=== PATIENT | female | born 1985 | race African-American/Black ===

== ENCOUNTER 2024-05-19 12:16 | Inpatient (IN) | payer SELFPAY ==
[~2024-05-19] VITALS: Ht 157.5 cm; Wt 68.2 kg
--- NOTE | 2024-05-19 12:28 | ECG ---
[facility] Test Date: 2024-05-19 Test Time: 12:27:17 Pat Name: EDWAR GRIFFIN Department: ER Room: Gender: F Driver Engineer: NORMA : 1985 Requested By: THUAN WESTON Order Number: [id number] Reading MD: Measurements Intervals [place] Rate: 94 P: 48 DC: 115 QRS: 37 QRSD: 66 T: -5 QT: 303 QTc: 379 Interpretive Statements Sinus rhythm Borderline short DC interval Abnormal R-wave progression, early transition Borderline T abnormalities, anterior leads Baseline wander in lead(s) I,II,aVR,aVF Please click the below link to view image of tracing.
[2024-05-19 12:52] LABS: Basophils # (auto) 0 10 ^3/uL (0-0.2); Basophils % (auto) 0.5 % (0.0-2.0); Eosinophils # (auto) 0.1 10 ^3/uL (0-0.8); Eosinophils % (auto) 0.7 % (0.0-7.0); Hematocrit 25.9 % (36.0-46.0); Hemoglobin 8.3 g/dL (12.2-16.2); Lymphocytes # (auto) 1.1 10 ^3/uL (0.4-5.4); Mean Corpuscular Hemoglobin 26.1 pg (28.0-32.0); Mean Corpuscular Hgb Conc. 31.8 g/dL (32.0-36.0); Monocytes % (auto) 13.5 % (0.0-12.0); Neutrophils # (auto) 5.4 10 ^3/uL (1.6-8.6); Neutrophils % (auto) 71.3 % (37.0-80.0); Platelet Count (auto) 617 10^3/uL (140-450); Red Blood Cells 3.16 10^6/uL (4.0-5.20); Red Cell Distribution Width 17.1 % (11.8-14.3); White Blood Cell 7.6 10^3/uL (4.4-10.8)
--- NOTE | 2024-05-19 12:53 | ED.PDOC ---
SOB-HPI HPI Comments GABY: 38-year-old female presents to emergency department for evaluation of nonspecific shortness of breath for one-week. She was recently diagnosed with a UTI and just finished her last dose of antibiotics cephalexin this morning. Patient denies any acute urinary symptoms at this time but she complains of worsening left flank pain. Patient denies any other acute symptoms. Denies any . Denies any bleeding from anywhere. Pain is constant non-radiating. Pain is worse with laying on her left side. Vitals: Temp:98.7 F Heart rate: 82 RR: 18 BP: 118/86 02 sat: 95% on room air PMH:DENIES PSH: DENIES Social history: DENIES tobacco use, ENDORSES ETOH use, DENIES drug use Meds: DENIES Allergies: IBUPROFEN REVIEW OF SYSTEMS: CONSTITUTIONAL: Denies acute: fever, diaphoresis, chills, generalized weakness. HEAD: Denies acute: headache, photophobia Eyes: Denies acute: Double vision, vision loss, eye pain, eye discharge. EARS: Denies acute: tinnitus, hearing loss, ear discharge, ear pain, THROAT: Denies acute: sore throat, swelling, difficulty swallowing , pain with swallowing, change in voice. NECK: Denies acute: neck pain, neck swelling, stiff neck. HEART: Denies acute : palpitations, LUNGS: Denies acute: wheezing, cough, hemoptysis ABDOMEN: Denies acute: abdominal pain, Nausea, Vomiting, diarrhea, melena , hematemesis, hematochezia SKIN: Denies acute: rash, redness, lesions, itchiness. EXTREMITIES: Denies acute: calf pain, numbness, tingling, weakness, denies pain in extremity. Denies acute: Low back pain. Neuro: Denies acute: focal neurological deficit, motor or sensory focal neurological deficit, tremors, seizure like activity, confusion, dizziness, change in mental status, loss of bowel or bladder function, cauda equina like symptoms. : Denies acute: dysuria, hematuria, increase in urinary frequency. PSYCH: Denies acute: hallucination, suicidal ideation, homicidal ideation. FEMALE: Denies acute: abnormal vaginal bleeding, foul odor, unusual discharge. PHYSICAL EXAM: General: no acute distress, awake and alert. Head: normocephalic, atraumatic. Neck: supple, trachea is midline, no swelling. Throat: Normal phonation. Eyes:, no erythema, no purulent discharge, no proptosis, no icterus. Heart: regular rate, regular rhythm, no significant murmur appreciated. Lungs: no apparent respiratory distress, Able to speak in full sentences. No wheezing, no rhonchi, no crackles. No stridors Clear to auscultation bilaterally. Abdomen: non tender to palpation, non distended, soft, no guarding, no rebound, + bowel sounds. Neuro: Awake, Alert, oriented to name, self, situation, follows commands GCS=15. Speech is normal. Skin: no petechia, no purpura, no cyanosis, non-pale, not jaundice. Lower extremities: --no - Pitting edema no deformity, no focal swelling, no calf TTP. Makes eye contact. moves all four extremities. Face: no apparent facial droop. Left CVA tenderness to percussion Ambulating in the ED independently. 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 Was a procedure done?: No Differential Dx Differential Diagnosis: Other (DDx include ACS, unstable angina, anxiety, PE, pneumothroax, neoplasm, cardiac ischemia, COPD, asthma, CHF, pleural effusion, tobacco abuse, pneumonia, hypoxia, hypercapnia, anemia., infection/sepsis., pulmonary edema. Asthma, Cardiac tamponade, infection. Flank Pain;DDX include Nephrolethiasis, obstructive uropathy, kidney cancer, renal infarct, intraabdominal neoplasm, lower lobe pneumonia, retroperitoneal hemorrhage, pancreatitis, aneurysm, dissection, musculoskeletal, rib contusion/trauma, hematoma, PYLONEPHRITIS, muscle strain, spinal disease. IN A FEMALE) X-Ray, Labs, Meds, VS Vital Signs Date Time Temp Pulse Resp B/P (MAP) Pulse Ox O2 Delivery O2 Flow Rate FiO2 05/19/24 18:09 117/49 05/19/24 18:06 86 16 100 Room Air 05/19/24 18:06 86 16 117/49 (71) 100 05/19/24 12:27 94 05/19/24 12:18 99.5 98 18 117/67 (84) 100 Lab Test 05/19/24 20:20 05/19/24 13:57 05/19/24 12:35 Range/Units Blood Gas Specimen Type Arterial Blood Gas Sample Site Left radial Blood Gas Patient Temperature 37.0 Arterial Blood Date Drawn Arterial Blood pH 7.450 7.350-7.450 Arterial Blood Partial Pressure CO2 22.5 L 32.0-45.0 mmHg Arterial Blood Partial Pressure O2 93.9 83.0-108.0 mmHg Arterial Blood HCO3 15.3 L 21.0-28.0 mmol/L Arterial Blood Oxygen Saturation 97.3 94.0-98.0 % Arterial Blood Base Excess -7.3 L -2.0-3.0 mmol/L Arterial Blood Oxyhemoglobin 96.7 94.0-98.0 % Arterial Blood Carboxyhemoglobin 0.3 L 0.5-1.5 % Arterial Blood Methemoglobin 0.3 0.0-1.5 % Jelani Test Yes Blood Gas Total Hemoglobin 9.60 L 12.0-16.0 g/dL Blood Gas Liter Flow 0.00 Blood Gas Modality Room air FiO2 % 21.0 Specimen Drawn By Héctor velasquez Urine Color Yellow Yellow Urine Clarity Clear Clear Urine pH 7.0 5.0-9.0 Urine Specific [place] 1.021 1.001-1.035 Urine Protein 1+ H Negative Urine Ketones Negative Negative Urine Blood Negative Negative /uL Urine Nitrite Negative Negative Urine Bilirubin Negative Negative Urine Urobilinogen 6 Negative mg/dL Urine Leukocyte Esterase 1+ Negative /uL Urine RBC 2 0 - 4 /hpf Urine WBC 5 0 - 5 /hpf Urine Squamous Epithelial Cells Few <5 /hpf Urine Bacteria Few H None Seen /hpf Urine Mucus Few None Seen Urine Glucose Normal Normal mg/dL Urine Opiates Screen Neg NEGATIVE Urine Fentanyl Screen Neg NEGATIVE Urine Barbiturates Screen Neg NEGATIVE Urine Phencyclidine Screen Neg NEGATIVE Urine Amphetamines Screen Neg NEGATIVE Urine Benzodiazepines Screen Neg NEGATIVE Urine Cocaine Screen Neg NEGATIVE Urine Cannabinoids Screen Pos NEGATIVE White Blood Count 7.6 4.4-10.8 10^3/uL Red Blood Count 3.16 L 4.0-5.20 10^6/uL Hemoglobin 8.3 L 12.2-16.2 g/dL Hematocrit 25.9 L 36.0-46.0 % Mean Corpuscular Volume 82.0 80.0-100.0 fL Mean Corpuscular Hemoglobin 26.1 L 28.0-32.0 pg Mean Corpuscular Hemoglobin Concent 31.8 L 32.0-36.0 g/dL Red Cell Distribution Width 17.1 H 11.8-14.3 % Platelet Count 617 H 140-450 10^3/uL Mean Platelet Volume 7.1 6.9-10.8 fL Neutrophils (%) (Auto) 71.3 37.0-80.0 % Lymphocytes (%) (Auto) 14.0 10.0-50.0 % Monocytes (%) (Auto) 13.5 H 0.0-12.0 % Eosinophils (%) (Auto) 0.7 0.0-7.0 % Basophils (%) (Auto) 0.5 0.0-2.0 % Neutrophils # (Auto) 5.4 1.6-8.6 10 ^3/uL Lymphocytes # (Auto) 1.1 0.4-5.4 10 ^3/uL Monocytes # (Auto) 1.0 0-1.3 10 ^3/uL Eosinophils # (Auto) 0.1 0-0.8 10 ^3/uL Basophils # (Auto) 0 0-0.2 10 ^3/uL Nucleated Red Blood Cells 0.0 % D-Dimer, Quantitative 4.83 H 0.0-0.49 mg/L FEU Sodium Level 132 L 136-145 mmol/L Potassium Level 3.6 3.5-5.1 mmol/L Chloride Level 108 H 98-107 mmol/L Carbon Dioxide Level 20 20-31 mmol/L Anion Gap 4 L 5-15 Blood Urea Nitrogen 11 9-23 mg/dL Creatinine 0.78 0.550-1.02 mg/dL Glomerular Filtration Rate Calc 100 >90 mL/min BUN/Creatinine Ratio 14.1 10.0-20.0 Serum Glucose 144 H 74-106 mg/dL Lactic Acid Level 1.2 0.4-2.0 mmol/L Calcium Level 8.9 8.7-10.4 mg/dL Total Bilirubin 0.7 0.2-1.0 mg/dL Aspartate Amino Transferase (AST) 253 H 13-40 U/L Alanine Aminotransferase (ALT) 331 H 7-40 U/L Alkaline Phosphatase 189 H 46-116 U/L Troponin I High Sensitivity < 3 L </=34 ng/L Total Protein 7.9 5.7-8.2 g/dL Albumin 4.2 3.2-4.8 g/dL Lipase 31 12-53 U/L Beta HCG, Quantitative 0.2 L 1.5-4.2 mIU/mL Current Medications Medications (Trade) Dose Ordered Sig/Tamar Route Start Time Stop Time Status Last Admin Ceftriaxone Sodium 50 ml @ 100 mls/hr ONCE ONCE IV 05/19/24 16:00 05/19/24 16:29 DC 05/19/24 18:09 Furosemide (Lasix Injection) 40 mg ONCE ONCE IV 05/19/24 16:00 05/19/24 16:04 DC 05/19/24 18:09 [place] [id number] Ph: [phone] DIAGNOSTIC IMAGING Diagnostic Imaging Report : [id number] Signed PATIENT: EDWAR GRIFFIN ACCT: [id number] UNIT: [id number] : 1985 LOC: ER ROOM / BED: / AGE / SEX: 38 / F ADM STATUS: REG ER SERVICE 1223 ORDERING PHYSICIAN: THUAN WESTON DO PROCEDURE(s): ABPLIV - CT AB PEL WITH IV CON ONLY REASON: L abd pain ORDER NUMBER(s): [id number], ACCESSION NUMBER(s): [id number] Exam: CT CT AB PEL WITH IV CON ONLY History: L abd pain Comparison Study: None available at time of dictation. TECHNIQUE: Multidetector CT of the abdomen was performed from lung bases to pubic symphysis. Imaging was performed without IV contrast. Axial, coronal and sagittal multiplanar reformats were obtained from the axial data set by the technologist. Radiation Dose Information: CT Dose: CTDI volume is 6.65 mGy. Dose-length product is 358.25 mGy*cm Omnipaque 300: 100 mL FINDINGS: Lung Bases: No acute or significant lung base finding. Mildly enlarged cardiac silhouette. Small bilateral pleural effusions.. Possible small pericardial effusion. Liver: The liver is normal in size. No focal lesions. Small 6 mm hypodense lesion left lobe of the liver most likely a small hepatic cyst. Gallbladder and Biliary Tree: Unremarkable Spleen: Unremarkable Pancreas: The pancreas is grossly normal in appearance. Adrenal Glands: Unremarkable Kidneys: Kidneys are grossly normal without calculi or hydronephrosis. Bladder: Grossly unremarkable for degree of distention. Bowel: The stomach is grossly normal in appearance. Small bowel and colon are normal in caliber and distribution. The appendix is not visualized; however, no secondary findings of acute appendicitis identified. Ascites: Absent Lymphadenopathy: No mesenteric, retroperitoneal or periportal lymphadenopathy. Abdominal Wall and Mesentery: Unremarkable. Vasculature: The visualized abdominal aorta is normal in size and caliber. Evaluation of abdominal and pelvic vessels is limited due to lack of intravenous contrast. Pelvic Organs: Right adnexum most likely ovary. If further detail is a clinical concern recommend pelvic ultrasound. Musculoskeletal: No aggressive focal bony lesions, acute fractures or dislocation. Soft tissues: Unremarkable IMPRESSION: 1. Probable small pericardial effusion. 2. Cardiomegaly 3. Small bilateral pleural effusions. 4. No findings of diverticulitis. 5. 3.4 cm complex mass right adnexa most likely ovary. If further detail is a clinical concern recommend pelvic ultrasound. Radiation optimization: All CT scans at this facility use at least one of these dose optimization techniques: automated exposure control mA and/or kV adjustment per patient size (includes targeted exams where dose is matched to clinical indication) or iterative reconstruction. ATED BY: HUGO ALVAREZ Jr., DO DICTATED DATE/TIME: 05/19/24 1448 SIGNED BY: HUGO ALVAREZ Jr., SIGNED DATE/TIME: 05/19/24 1448 CC: Time of 1ST Reevaluation: 21:15 Reevaluation 1ST: Improved Patient Education/Counseling: Diagnosis, Treatment Family Education/Counseling: No Family Present Comments Patient presented with the above HPI.---dyspnea and flank pain---workup was initiated. patient was found with the above mentioned diagnosis. Patient was given: Lasix 40 mg IV, Rocephin 1 g, Patient ED course and VS have been stabilized. Patient has been reassessed in the ED and remained in a stable condition. Pertinent incidental findings were discussed with the patient and/or family. Patient/family voices understanding and is agreeable with plan. Patient has been observed in the ED adequate length of time to insure improv ement/stability. patient was admitted to the medicine team for further evaluation and treatment of their presentation. All the reports of any imaging studies that were ordered by myself were reviewed by myself. We were unable to obtain a CT angiogram of the chest to rule out PE given her elevated D-dimer. This was due to the fact that she already received contrast in her CT scan of the abdomen and pelvis. ABG was obtained and patient is not hypoxic. Patient is not tachycardic. I ordered a nuclear medicine V/Q scan which is still pending. Patient denies any use of alcohol. I discussed in length with the medicine team resident dr. Ramos to consider maybe anticoagulation of the patient if the imaging studies are not guarantee to happened in the timely manner. She will discuss that with her attending.. Departure 1 Departure Time of Disposition: 15:49 Impression: Primary Impression: Dyspnea Additional Impressions: UTI (urinary tract infection) Flank pain Pericardial effusion Cardiomegaly Anemia Elevated LFTs Elevated d-dimer Disposition: ADMITTED INPATIENT Admit to: Tele Condition: Guarded Discharged With: Self Critical Care Note Critical Care Time?: Yes (55 min-critical care time only) Heart Score Heart Score: Heart Score Response (Comments) Value History Slightly Suspicious 0 EKG Normal 0 Age <45 0 Risk Factors No known risk factors 0 Troponin Normal limit 0 Total 0 I personally scribed for THUAN WESTON DO ([email or web address]) on 05/19/24 at 13:02. Electronically submitted by Rebeca Herrera ([employer]). I personally scribed for THUAN WESTON DO ([email or web address]) on 05/19/24 at 13:49. Electronically submitted by Rebeca Herrera ([employer]). I personally scribed for THUAN WESTON DO ([email or web address]) on 05/19/24 at 15:13. Electronically submitted by Rebeca Herrera ([employer]). I personally scribed for THUAN WESTON DO ([email or web address]) on 05/19/24 at 18:20. Electronically submitted by Rebeca Herrera ([facility]). THUAN WESTON DO May 19, 2024 12:53
--- NOTE | 2024-05-19 12:53 | ED.PDOC ---
GI ASSESSMENT Chief Complaint: Abdominal Pain Primary Care Provider: NONE Allergies: Coded Allergies: Ibuprofen (Verified Allergy, Unknown, 05/19/24) Mode of Arrival: Ambulatory Past Medical History PAST MEDICAL HISTORY: UTI'S ERP SPECIALIST History: No Pertinent ERP SPECIALIST History X-Ray, Labs, Meds, VS Vital Signs Date Time Temp Pulse Resp B/P (MAP) Pulse Ox O2 Delivery O2 Flow Rate FiO2 05/19/24 12:27 94 05/19/24 12:18 99.5 98 18 117/67 (84) 100 Lab Test 05/19/24 12:35 Range/Units White Blood Count 7.6 4.4-10.8 10^3/uL Red Blood Count 3.16 L 4.0-5.20 10^6/uL Hemoglobin 8.3 L 12.2-16.2 g/dL Hematocrit 25.9 L 36.0-46.0 % Mean Corpuscular Volume 82.0 80.0-100.0 fL Mean Corpuscular Hemoglobin 26.1 L 28.0-32.0 pg Mean Corpuscular Hemoglobin Concent 31.8 L 32.0-36.0 g/dL Red Cell Distribution Width 17.1 H 11.8-14.3 % Platelet Count 617 H 140-450 10^3/uL Mean Platelet Volume 7.1 6.9-10.8 fL Neutrophils (%) (Auto) 71.3 37.0-80.0 % Lymphocytes (%) (Auto) 14.0 10.0-50.0 % Monocytes (%) (Auto) 13.5 H 0.0-12.0 % Eosinophils (%) (Auto) 0.7 0.0-7.0 % Basophils (%) (Auto) 0.5 0.0-2.0 % Neutrophils # (Auto) 5.4 1.6-8.6 10 ^3/uL Lymphocytes # (Auto) 1.1 0.4-5.4 10 ^3/uL Monocytes # (Auto) 1.0 0-1.3 10 ^3/uL Eosinophils # (Auto) 0.1 0-0.8 10 ^3/uL Basophils # (Auto) 0 0-0.2 10 ^3/uL Nucleated Red Blood Cells 0.0 % D-Dimer, Quantitative 4.83 H 0.0-0.49 mg/L FEU Sodium Level 132 L 136-145 mmol/L Potassium Level 3.6 3.5-5.1 mmol/L Chloride Level 108 H 98-107 mmol/L Carbon Dioxide Level 20 20-31 mmol/L Anion Gap 4 L 5-15 Blood Urea Nitrogen 11 9-23 mg/dL Creatinine 0.78 0.550-1.02 mg/dL Glomerular Filtration Rate Calc 100 >90 mL/min BUN/Creatinine Ratio 14.1 10.0-20.0 Serum Glucose 144 H 74-106 mg/dL Lactic Acid Level 1.2 0.4-2.0 mmol/L Calcium Level 8.9 8.7-10.4 mg/dL Total Bilirubin 0.7 0.2-1.0 mg/dL Aspartate Amino Transferase (AST) 253 H 13-40 U/L Alanine Aminotransferase (ALT) 331 H 7-40 U/L Alkaline Phosphatase 189 H 46-116 U/L Troponin I High Sensitivity < 3 L </=34 ng/L Total Protein 7.9 5.7-8.2 g/dL Albumin 4.2 3.2-4.8 g/dL Lipase 31 12-53 U/L Beta HCG, Quantitative Pending I personally scribed for THUAN WESTON DO ([email or web address]) on 05/19/24 at 12:53. Electronically submitted by Rebeca Herrera ([facility]). I personally scribed for THUAN WESTON DO ([email or web address]) on 05/19/24 at 13:46. Electronically submitted by Rebeca Herrera ([facility]). THUAN WESTON DO May 19, 2024 12:53
[2024-05-19 13:10] LABS: Alanine Aminotransferase 331 U/L (7-40); Albumin 4.2 g/dL (3.2-4.8); Alkaline Phosphatase 189 U/L (46-116); Anion Gap 4 (5-15); Aspartate Aminotransferase 253 U/L (13-40); BUN/Creatinine Ratio 14.1 (10.0-20.0); Bilirubin, Total 0.7 mg/dL (0.2-1.0); Blood Urea Nitrogen 11 mg/dL (9-23); Calcium 8.9 mg/dL (8.7-10.4); Carbon Dioxide 20 mmol/L (20-31); Chloride 108 mmol/L (98-107); Glucose 144 mg/dL (74-106); Lipase 31 U/L (12-53); Potassium 3.6 mmol/L (3.5-5.1); Sodium 132 mmol/L (136-145); Total Protein 7.9 g/dL (5.7-8.2)
[2024-05-19 14:18] LABS: Urine Bacteria FEW /hpf (None Seen); Urine Blood Negative /uL (Negative); Urine Clarity Clear (Clear); Urine Color Yellow (Yellow); Urine Mucus FEW (None Seen); Urine Protein, UAD 1+ (Negative); Urine Specific Gravity 1.021 (1.001-1.035); Urine Urobilinogen 6 mg/dL (Negative); Urine WBC 5 /hpf (0 - 5)
[2024-05-19 14:25] LABS: Amphetamine Screen, Urine Neg (NEGATIVE); Barbiturate Scree,Urine Neg (NEGATIVE); Benzodiazephine Screen, Urine Neg (NEGATIVE); Cannabinoid Screen, Urine Pos (NEGATIVE); Cocaine Screen, Urine Neg (NEGATIVE); Opiate Scree,Urine Neg (NEGATIVE); Phencyclidine Screen, Urine Neg (NEGATIVE)
--- NOTE | 2024-05-19 14:51 | DVH ---
Exam: CT CT AB PEL WITH IV CON ONLY History: L abd pain Comparison Study: None available at time of dictation. TECHNIQUE: Multidetector CT of the abdomen was performed from lung bases to pubic symphysis. Imaging was performed without IV contrast. Axial, coronal and sagittal multiplanar reformats were obtained fr om the axial data set by the technologist. Radiation Dose Information: CT Dose: CTDI volume is 6.65 mGy. Dose-length product is 358.25 mGy*cm Omnipaque 300: 100 mL FINDINGS: Lung Bases: No acute or significant lung base finding. Mildly enlarged cardiac silhouette. Small gerardo ateral pleural effusions.. Possible small pericardial effusion. Liver: The liver is normal in size. No focal lesions. Small 6 mm hypodense lesion left lobe of the l iver most likely a small hepatic cyst. Gallbladder and Biliary Tree: Unremarkable Spleen: Unremarkable Pancreas: The pancreas is grossly normal in appearance. Adrenal Glands: Unremarkable Kidneys: Kidneys are grossly normal without calculi or hydronephrosis. Bladder: Grossly unremarkable for degree of distention. Bowel: The stomach is grossly normal in appearance. Small bowel and colon are normal in caliber and d istribution. The appendix is not visualized; however, no secondary findings of acute appendicitis id entified. Ascites: Absent Lymphadenopathy: No mesenteric, retroperitoneal or periportal lymphadenopathy. Abdominal Wall and Mesentery: Unremarkable. Vasculature: The visualized abdominal aorta is normal in size and caliber. Evaluation of abdominal a nd pelvic vessels is limited due to lack of intravenous contrast. Pelvic Organs: Right adnexum most likely ovary. If further detail is a clinical concern recommend pel edwin ultrasound. Musculoskeletal: No aggressive focal bony lesions, acute fractures or dislocation. Soft tissues: Unremarkable IMPRESSION: 1. Probable small pericardial effusion. 2. Cardiomegaly 3. Small bilateral pleural effusions. 4. No findings of diverticulitis. 5. 3.4 cm complex mass right adnexa most likely ovary. If further detail is a clinical concern recomm end pelvic ultrasound. Radiation optimization: All CT scans at this facility use at least one of these dose optimization louis hniques: automated exposure control mA and/or kV adjustment per patient size (includes targeted exam s where dose is matched to clinical indication) or iterative reconstruction.
[2024-05-19] MEDS: FUROSEMIDE 40 MG/4 ML VIAL IV ONE (18:09)
[2024-05-19] MEDS: cefTRIAXone 1GM/50ML D5W 50 ML IV ONE (18:09)
[2024-05-19 20:32] LABS: Base Excess -7.3 mmol/L (-2.0-3.0)
[2024-05-19] MEDS ORDERED: MORPHINE SULFATE INJ 2 MG/ml SYRG IV PRN (21:30)
[2024-05-19] MEDS ORDERED: NITROGLYCERIN 0.4 MG SL TAB SL PRN (21:30)
[2024-05-19] MEDS ORDERED: ONDANSETRON HCL 4 MG/2 ML VIAL IV PRN (21:30)
[2024-05-19 21:40] VITALS: PULSE 93; RESP 14; O2SAT 100
[2024-05-19] MEDS: SODIUM CHLOR 0.9% PF (SALINE LOCK) 10ML VIAL/SYR IV SCH (22:00)
--- NOTE | 2024-05-19 22:15 | DVHHPRES ---
History of Present Illness Resident Creating Document: KEVYN STRAUSS RESIDENT History of Present Illness This is a 38 years old female with no significant past medical history presented to the ED with a chief complaint of shortness of breath and and left upper abdominal and flank pain for 1 last 1 week prior to this admission. According to the patient shortness of breath and left upper abdominal pain started 1 week ago and then she went to urgent care and diagnosed with UTI and gave antibiotic and she just finished her antibiotic cephalexin this morning but it did not relief her shortness of breath or abdominal pain. The abdominal pain is colicky in nature, 6/10 constant, non radiating and associated with night sweats and aggravated by lying down on the left side without any relieving factor. The patient denies any sick contact, recent traveling , nausea, vomiting, change in bowel or bladder habit, dysuria ,urgency or any blood in urine . Past Medical History None Past Surgical History None. Family History Family history is significant for type 2 diabetes mellitus and sister has history of mesothelioma. Past Social History Nonsmoker, nonalcoholic and smoke weeds. Review of Systems Constitutional: Yes: Sweats; No: Fever, Chills, Weakness, Malaise, Other Eyes: No: Pain, Vision change, Conjunctivae inflammation, Eyelid inflammation, Other, Redness ENT: No: Ear pain, Ear discharge, Nose pain, Nose discharge, Nose congestion, Mouth pain, Mouth swelling, Throat pain, Throat swelling, Other Respiratory: Shortness of breath, SOB with excertion; No: Cough, Dry, Wheezing, Hemoptysis, Pleuritic Pain, Sputum, Wheezing, Other Cardiovascular: No: Chest Pain, Palpitations, Orthopnea, Paroxysmal Noc. Dyspnea, Edema, Lt Headedness, Other Gastrointestinal: Abdominal Pain; No: Nausea, Vomiting, Diarrhea, Constipation, Melena, Hematochezia, Other Genitourinary: No Dysuria, No Frequency, No Incontinence, No Hematuria, No Retention, No Other Musculoskeletal: No: other, neck pain, shoulder pain, arm pain, back pain, hand pain, leg pain, foot pain Skin: No: Rash, Lesions, Jaundice, Bruising, Other Neurological: No: Weakness, Numbness, Incoordination, Change in speech, Confusion, Seizures, Other Allergies: Coded Allergies: Ibuprofen (Verified Allergy, Unknown, 05/19/24) Medications Current Medications Medications Dose Ordered Sig/Tamar Route Start Time Stop Time Status Last Admin Dose Admin Sodium Chloride 10 ml Q8HR IV 05/19/24 22:00 Acetaminophen/ Hydrocodone Bitart 1 tab Q4HP PRN PO 05/19/24 21:30 UNV Ondansetron HCl 4 mg Q4HP PRN IV 05/19/24 21:30 Nitroglycerin 0.4 mg Q5MINP PRN SL 05/19/24 21:30 Morphine Sulfate 2 mg Q30M PRN IV 05/19/24 21:30 Ceftriaxone Sodium 50 ml @ 100 mls/hr DAILY IV 05/20/24 10:00 UNV Exam Vital Signs Vital Signs Date Time Temp Pulse Resp B/P (MAP) Pulse Ox O2 Delivery O2 Flow Rate FiO2 05/19/24 21:40 93 14 100 Room Air* 0 21 05/19/24 21:37 98.0 115/57 (76) 98.0 Exam Physical examination: General Appearance: Alert, Oriented X3, Cooperative, No acute distress HEENT: Atraumatic, PERRLA, EOMI, Mucous membrane moist/pink Respiratory: Clear to auscultation, Normal air movement Cardiovascular: Regular rate, Normal S1, Normal S2, No murmurs, no chest wall tenderness Abdominal: Normal bowel sounds, Soft, No tenderness, No hepatospenomegaly, No masses Extremities: No clubbing, No cyanosis, No edema, Normal pulses, No te nderness/swelling Skin: No rashes, No breakdown, No significant lesion Neuro: Normal gait, Normal speech, Strength at 5/5 X4 ext, Normal tone, Sensation intact, grossly intact cranial nerves. Psych/Mental Status: Mental status NL, Mood NL Labs/Xrays Labs Test 05/19/24 20:20 05/19/24 13:57 05/19/24 12:35 Range/Units Blood Gas Specimen Type Arterial Blood Gas Sample Site Left radial Blood Gas Patient Temperature 37.0 Arterial Blood Date Drawn Arterial Blood pH 7.450 7.350-7.450 Arterial Blood Partial Pressure CO2 22.5 L 32.0-45.0 mmHg Arterial Blood Partial Pressure O2 93.9 83.0-108.0 mmHg Arterial Blood HCO3 15.3 L 21.0-28.0 mmol/L Arterial Blood Oxygen Saturation 97.3 94.0-98.0 % Arterial Blood Base Excess -7.3 L -2.0-3.0 mmol/L Arterial Blood Oxyhemoglobin 96.7 94.0-98.0 % Arterial Blood Carboxyhemoglobin 0.3 L 0.5-1.5 % Arterial Blood Methemoglobin 0.3 0.0-1.5 % Jelani Test Yes Blood Gas Total Hemoglobin 9.60 L 12.0-16.0 g/dL Blood Gas Liter Flow 0.00 Blood Gas Modality Room air FiO2 % 21.0 Specimen Drawn By Agricultural Consultant olga velasquez Urine Color Yellow Yellow Urine Clarity Clear Clear Urine pH 7.0 5.0-9.0 Urine Specific [place] 1.021 1.001-1.035 Urine Protein 1+ H Negative Urine Ketones Negative Negative Urine Blood Negative Negative /uL Urine Nitrite Negative Negative Urine Bilirubin Negative Negative Urine Urobilinogen 6 Negative mg/dL Urine Leukocyte Esterase 1+ Negative /uL Urine RBC 2 0 - 4 /hpf Urine WBC 5 0 - 5 /hpf Urine Squamous Epithelial Cells Few <5 /hpf Urine Bacteria Few H None Seen /hpf Urine Mucus Few None Seen Urine Glucose Normal Normal mg/dL Urine Opiates Screen Neg NEGATIVE Urine Fentanyl Screen Neg NEGATIVE Urine Barbiturates Screen Neg NEGATIVE Urine Phencyclidine Screen Neg NEGATIVE Urine Amphetamines Screen Neg NEGATIVE Urine Benzodiazepines Screen Neg NEGATIVE Urine Cocaine Screen Neg NEGATIVE Urine Cannabinoids Screen Pos NEGATIVE White Blood Count 7.6 4.4-10.8 10^3/uL Red Blood Count 3.16 L 4.0-5.20 10^6/uL Hemoglobin 8.3 L 12.2-16.2 g/dL Hematocrit 25.9 L 36.0-46.0 % Mean Corpuscular Volume 82.0 80.0-100.0 fL Mean Corpuscular Hemoglobin 26.1 L 28.0-32.0 pg Mean Corpuscular Hemoglobin Concent 31.8 L 32.0-36.0 g/dL Red Cell Distribution Width 17.1 H 11.8-14.3 % Platelet Count 617 H 140-450 10^3/uL Mean Platelet Volume 7.1 6.9-10.8 fL Neutrophils (%) (Auto) 71.3 37.0-80.0 % Lymphocytes (%) (Auto) 14.0 10.0-50.0 % Monocytes (%) (Auto) 13.5 H 0.0-12.0 % Eosinophils (%) (Auto) 0.7 0.0-7.0 % Basophils (%) (Auto) 0.5 0.0-2.0 % Neutrophils # (Auto) 5.4 1.6-8.6 10 ^3/uL Lymphocytes # (Auto) 1.1 0.4-5.4 10 ^3/uL Monocytes # (Auto) 1.0 0-1.3 10 ^3/uL Eosinophils # (Auto) 0.1 0-0.8 10 ^3/uL Basophils # (Auto) 0 0-0.2 10 ^3/uL Nucleated Red Blood Cells 0.0 % D-Dimer, Quantitative 4.83 H 0.0-0.49 mg/L FEU Sodium Level 132 L 136-145 mmol/L Potassium Level 3.6 3.5-5.1 mmol/L Chloride Level 108 H 98-107 mmol/L Carbon Dioxide Level 20 20-31 mmol/L Anion Gap 4 L 5-15 Blood Urea Nitrogen 11 9-23 mg/dL Creatinine 0.78 0.550-1.02 mg/dL Glomerular Filtration Rate Calc 100 >90 mL/min BUN/Creatinine Ratio 14.1 10.0-20.0 Serum Glucose 144 H 74-106 mg/dL Lactic Acid Level 1.2 0.4-2.0 mmol/L Calcium Level 8.9 8.7-10.4 mg/dL Total Bilirubin 0.7 0.2-1.0 mg/dL Aspartate Amino Transferase (AST) 253 H 13-40 U/L Alanine Aminotransferase (ALT) 331 H 7-40 U/L Alkaline Phosphatase 189 H 46-116 U/L Troponin I High Sensitivity < 3 L </=34 ng/L Total Protein 7.9 5.7-8.2 g/dL Albumin 4.2 3.2-4.8 g/dL Lipase 31 12-53 U/L Beta HCG, Quantitative 0.2 L 1.5-4.2 mIU/mL Assessment/Plan Assessment/Plan Assessment and plan: # Shortness of breath likely secondary to pulmonary embolism - Patient complaints of shortness of Breath and night sweats for 1 week and D- dimer is high - CT abdomen pelvis with contrast revealed small bilateral pleural effusion with right-sided complex ovarian mass - Ordered V/Q scan and echo - Ordered ultrasound of the pelvis - Ordered CA 125, CA 27-29 and alpha-fetoprotein to rule out ovarian malignancy - Consulted OBGYN - Started heparin drip per PE protocol # Transaminitis without hyperbilirubinemia likely secondary to possible ovarian malignancy - Monitor CMP # Acute complicated cystitis - UA consistent with UTI - Ordered urine bacterial culture - IV ceftriaxone 1 g daily. # Chronic normocytic anemia likely secondary to menorrhagia - Ordered iron panel and FOBT # PUD prophylaxis - Protonix 40 mg p.o. daily # DVT prophylaxis - Lovenox 40 mg sc daily Goal of care discussed with the patient for more than 17 minutes full code Plan of treatment discussed with Dr. Krause Plan discussed with: Patient, Other My Orders Orders - KEVYN STRAUSS Procedure Category Date Status Time Admit ADMIT 05/19/24 Transmitted 21:30 Code Status CODE 05/19/24 Transmitted 21:30 Sodium Chloride Lock PHA 05/19/24 In Process (Saline Lock Ns) 22:00 Oxygen Per Hour RT 05/19/24 Transmitted 21:30 Hydrocodone-Acet PHA 05/19/24 Pending 5/325mg Tab ([place] 21:30 Ondansetron Hcl PHA 05/19/24 In Process (Zofran) 21:30 Complete Blood Count LAB 05/20/24 Verified 04:00 Comprehensive LAB 05/20/24 Verified Metabolic Panel 04:00 Nitroglycerin PHA 05/19/24 In Process Sublingual (Ntrostat 21:30 Morphine Sulfate PHA 05/19/24 In Process Injection 21:30 Oxygen By Nasal RT 05/19/24 Transmitted Cannula 21:30 Stat Ekg For Chest RICAH 05/19/24 In Process Pain 21:30 Notify Of Changes RICHA 05/19/24 In Process From Base 21:30 Transition Coach For RICHA 05/19/24 In Process 24 Hours 21:30 Emergency Dysrhythmia RICHA 05/19/24 In Process Protocol 21:30 Rhythm Strips Once RICHA 05/19/24 In Process Every Shift 21:30 Ca 125 (Serial) LAB 05/19/24 Logged 22:06 Urine Bacterial ELINOR 05/19/24 Logged Culture 22:09 Ceftriaxone 1gm/50ml PHA 05/20/24 Logged D5w (Rocephin) 10:00 Date of Service: May 19, 2024 Billing Provider: CODIE KRAUSE MD Common Visit Codes: [id number] INP/OBS CARE (HIGH) KEVYN STRAUSS RESIDENT May 19, 2024 22:15 CODIE KRAUSE MD May 20, 2024 10:41
[2024-05-19 23:24] LABS: Basophils # (auto) 0 10 ^3/uL (0-0.2); Basophils % (auto) 0.6 % (0.0-2.0); Eosinophils # (auto) 0 10 ^3/uL (0-0.8); Lymphocytes # (auto) 0.9 10 ^3/uL (0.4-5.4); Lymphocytes % (auto) 11.8 % (10.0-50.0); Monocytes # (auto) 0.8 10 ^3/uL (0-1.3); Red Blood Cells 3.18 10^6/uL (4.0-5.20); White Blood Cell 7.3 10^3/uL (4.4-10.8)
[2024-05-19 23:25] LABS: Eosinophils % (auto) 0.5 % (0.0-7.0); Hematocrit 26.3 % (36.0-46.0); Mean Corpuscular Hgb Conc. 30.3 g/dL (32.0-36.0); Mean Corpuscular Volume 82.6 fL (80.0-100.0); Monocytes % (auto) 11.6 % (0.0-12.0); Neutrophils # (auto) 5.5 10 ^3/uL (1.6-8.6); Neutrophils % (auto) 75.5 % (37.0-80.0); Nucleated Red Blood Cells % 0.1 %; Platelet Count (auto) 645 10^3/uL (140-450); Red Cell Distribution Width 17.2 % (11.8-14.3)
[2024-05-19] MEDS: SODIUM CHLORIDE 0.9% 500 ML IV ONE (23:30)
[2024-05-19 23:41] LABS: INR 1.06 (0.9-1.15); Partial Thromboplastin Time 29.4 SEC (24.5-34.5); Prothrombin Time 11.2 sec (9.3-11.8)
[2024-05-20] MEDS: HEPARIN SODIUM (PORCINE) 5000 UNITS/ML 1ML VIAL IV ONE (01:17)
--- NOTE | 2024-05-20 01:19 | DVH ---
CLINICAL HISTORY: shortness of breath TECHNIQUE: Color and duplex doppler imaging of the bilateral lower extremity veins was performed. Ves pam compression if possible was also performed. WID: COMPARISON: None FINDINGS: Right Lower Extremity: Right common femoral vein: Normal compressibility and flow. Right femoral vein: Normal compressibility and flow. Right popliteal vein: Normal compressibility and flow. Proximal calf veins are normally compressible. Left Lower Extremity: Left common femoral vein: Normal compressibility and flow. Left femoral vein: Normal compressibility and flow. Left popliteal vein: Normal compressibility and flow. Proximal calf veins are normally compressible. IMPRESSION: NO SONOGRAPHIC EVIDENCE FOR DEEP VENOUS THROMBOSIS IN THE BILATERAL LOWER EXTREMITY VEINS.
[2024-05-20] MEDS: HEPARIN DRIP/D5W 100UNITS/ML 250 ML IV SCH ×2 (01:35→21:15)
--- NOTE | 2024-05-20 04:10 | DVH ---
INDICATION: pain TECHNIQUE: Multiple real-time grayscale transabdominal and TV sonographic images along with color an d duplex Doppler of the uterus and ovaries were obtained. COMPARISON: None FINDINGS: The uterus measures 7 x 4 x 4 cm. The endometrial stripe measures 1 cm. Heterogeneous mass measuring 2 cm in the body of the uterus. This could represent a fibroid. The right ovary measures 2 x 2 x 3 cm. The left ovary measures 2 x 2 x 2 cm. Subsequent color and duplex Doppler interrogation of the ovaries demonstrated symmetric vascular flow to both ovaries, though this does not exclude the possibility of torsion due to the dual blood suppl y. IMPRESSION: Heterogeneous mass measuring 2 cm in the body of the uterus. This could represent a fibroid .
[2024-05-20 05:11] LABS: Basophils # (auto) 0 10 ^3/uL (0-0.2); Basophils % (auto) 0.7 % (0.0-2.0); Eosinophils # (auto) 0.1 10 ^3/uL (0-0.8); Hematocrit 24.6 % (36.0-46.0); Hemoglobin 7.6 g/dL (12.2-16.2); Lymphocytes # (auto) 0.9 10 ^3/uL (0.4-5.4); Lymphocytes % (auto) 14.4 % (10.0-50.0); Mean Corpuscular Hemoglobin 25.1 pg (28.0-32.0); Mean Corpuscular Hgb Conc. 30.9 g/dL (32.0-36.0); Mean Corpuscular Volume 81.3 fL (80.0-100.0); Monocytes # (auto) 0.8 10 ^3/uL (0-1.3); Monocytes % (auto) 13.9 % (0.0-12.0); Neutrophils # (auto) 4.2 10 ^3/uL (1.6-8.6); Platelet Count (auto) 601 10^3/uL (140-450); Red Blood Cells 3.03 10^6/uL (4.0-5.20); Red Cell Distribution Width 17.1 % (11.8-14.3)
[2024-05-20 05:27] LABS: Alanine Aminotransferase 274 U/L (7-40); Albumin 3.8 g/dL (3.2-4.8); Alkaline Phosphatase 164 U/L (46-116); Calcium 8.5 mg/dL (8.7-10.4); Chloride 108 mmol/L (98-107)
[2024-05-20 05:28] LABS: Anion Gap 11 (5-15); Aspartate Aminotransferase 181 U/L (13-40); Bilirubin, Total 0.5 mg/dL (0.2-1.0); Blood Urea Nitrogen 9 mg/dL (9-23); Carbon Dioxide 16 mmol/L (20-31); Glucose 142 mg/dL (74-106); Potassium 3.2 mmol/L (3.5-5.1); Sodium 135 mmol/L (136-145); Total Protein 7.5 g/dL (5.7-8.2)
[2024-05-20 05:31] LABS: % Iron Saturation 3.2 % (15-50)
[2024-05-20] MEDS: PANTOPRAZOLE 40 MG TAB PO SCH (06:00)
[2024-05-20 08:19] VITALS: BP 93/54; PULSE 85; RESP 16; TEMP 98; O2SAT 99
[2024-05-20 08:27] LABS: INR 1.08 (0.9-1.15); Prothrombin Time 11.4 sec (9.3-11.8)
[2024-05-20 08:29] LABS: Partial Thromboplastin Time 72.8 SEC (24.5-34.5)
--- NOTE | 2024-05-20 11:03 | DVH ---
EXAM: NM NM VQ SCAN HISTORY: PULMONARY EMBOLISM COMPARISON: None TECHNIQUE: Ventilation study was performed after administration of 4.4 mCi xenon gas. Perfusion stud y was performed after administration 5.5 mCi of technetium 99 M MAA intravenously. FINDINGS: Ventilation images demonstrate uniform distribution of radiotracer in both lungs during wash in, and equilibrium phases. The perfusion images show homogeneous distribution of radiotracer in both lungs without any segmental defects. IMPRESSION: 1. Normal V/Q scan.
--- NOTE | 2024-05-20 12:18 | DVHPN2 ---
Reviewed: Care Plan, H&P, Labs, Medications, Previous Orders, Radiology Changes from previous H/P or p: No Changes General: Per HPI Eyes: No Pain, No Vision change, No Conjunctivae inflammation, No Eyelid inflammation, No Other, No Redness ENT: No Ear pain, No Ear discharge, No Nose pain, No Nose discharge, No Nose congestion, No Mouth pain, No Mouth swelling, No Throat pain, No Throat swelling, No Other Cardiovascular: No Chest Pain, No Palpitations, No Orthopnea, No Paroxysmal Noc. Dyspnea, No Edema, No Lt Headedness, No Other Respiratory: No Cough, No Dry; Shortness of breath, SOB with excertion; No Wheezing, No Hemoptysis, No Pleuritic Pain, No Sputum, No Other Gastrointestinal: No Nausea, No Vomiting; Abdominal Pain; No Diarrhea, No Constipation, No Melena, No Hematochezia, No Other Genitourinary: No Dysuria, No Frequency, No Incontinence, No Hematuria, No Retention, No Other Musculoskeletal: No other, No neck pain, No shoulder pain, No arm pain, No back pain, No hand pain, No leg pain, No foot pain Skin: No Rash, No Lesions, No Jaundice, No Bruising, No Other Objective Vitals Vital Signs Date Time Temp Pulse Resp B/P (MAP) Pulse Ox O2 Delivery O2 Flow Rate FiO2 05/20/24 08:19 98.0 85 16 93/54 (67) 99 98.0 05/19/24 21:40 Room Air* 0 21 Intake/Output Intake and Output 05/20/24 07:00 Intake Total 550 ml Balance 550 ml Intake IV Total 550 ml Medications Current Medications Medications Dose Ordered Sig/Tamar Route Start Time Stop Time Status Last Admin Dose Admin Sodium Chloride 10 ml Q8HR IV 05/19/24 22:00 05/20/24 06:03 10 ML Acetaminophen/ Hydrocodone Bitart 1 tab Q4HP PRN PO 05/19/24 21:30 Ondansetron HCl 4 mg Q4HP PRN IV 05/19/24 21:30 Nitroglycerin 0.4 mg Q5MINP PRN SL 05/19/24 21:30 Morphine Sulfate 2 mg Q30M PRN IV 05/19/24 21:30 Ceftriaxone Sodium 50 ml @ 100 mls/hr DAILY IV 05/20/24 10:00 Heparin Sodium/ Dextrose 250 ml @ 12 mls/hr [id number] IV 05/20/24 00:30 05/20/24 01:35 12 MLS/HR Pantoprazole Sodium 40 mg DAILY@0600 PO 05/20/24 06:00 05/20/24 06:00 40 MG Laboratory Results Laboratory Tests 05/20/24 04:51 Chemistry Test 05/19/24 12:35 05/20/24 04:51 Albumin 4.2 g/dL (3.2-4.8) 3.8 g/dL (3.2-4.8) Calcium Level 8.9 mg/dL (8.7-10.4) 8.5 mg/dL (8.7-10.4) L Total Protein 7.9 g/dL (5.7-8.2) 7.5 g/dL (5.7-8.2) Coagulation Test 05/19/24 12:35 05/19/24 23:08 05/20/24 07:45 D-Dimer, Quantitative 4.83 mg/L FEU (0.0-0.49) H Prothrombin Time 11.2 sec (9.3-11.8) 11.4 sec (9.3-11.8) Prothrombin Time INR 1.06 (0.9-1.15) 1.08 (0.9-1.15) Activated Partial Thromboplast Time 29.4 SEC (24.5-34.5) 72.8 SEC (24.5-34.5) *H Lipid panel Test 05/19/24 12:35 Lipase 31 U/L (12-53) LFT Test 05/19/24 12:35 05/20/24 04:51 Alanine Aminotransferase (ALT) 331 U/L (7-40) H 274 U/L (7-40) H Alkaline Phosphatase 189 U/L (46-116) H 164 U/L (46-116) H Aspartate Amino Transferase (AST) 253 U/L (13-40) H 181 U/L (13-40) H Total Bilirubin 0.7 mg/dL (0.2-1.0) 0.5 mg/dL (0.2-1.0) Urinalysis Test 05/19/24 13:57 Urine Color Yellow (Yellow) Urine Clarity Clear (Clear) Urine pH 7.0 (5.0-9.0) Urine Specific [place] 1.021 (1.001-1.035) Urine Protein 1+ (Negative) H Urine Ketones Negative (Negative) Urine Blood Negative /uL (Negative) Urine Nitrite Negative (Negative) Urine Bilirubin Negative (Negative) Urine Urobilinogen 6 mg/dL (Negative) Urine Leukocyte Esterase 1+ /uL (Negative) Urine RBC 2 /hpf (0 - 4) Urine WBC 5 /hpf (0 - 5) Urine Squamous Epithelial Cells Few /hpf (<5) Urine Bacteria Few /hpf (None Seen) H Urine Mucus Few (None Seen) Urine Glucose Normal mg/dL (Normal) Blood Gas Results Test 05/19/24 20:20 Arterial Blood pH 7.450 (7.350-7.450) FiO2 % 21.0 Assessment/Plan Assessment/Plan This is a 38 years old female with no significant past medical history presented to the ED with a chief complaint of shortness of breath and and left upper abdominal and flank pain for 1 last 1 week prior to this admission. According to the patient shortness of breath and left upper abdominal pain started 1 week ago and then she went to urgent care and diagnosed with UTI and gave antibiotic and she just finished her antibiotic cephalexin this morning but it did not relief her shortness of breath or abdominal pain. The abdominal pain is colicky in nature, 6/10 constant, non radiating and associated with night sweats and aggravated by lying down on the left side without any relieving factor. The patient denies any sick contact, recent traveling , nausea, vomiting, change in bowel or bladder habit, dysuria ,urgency or any blood in urine . # Shortness of breath likely secondary to pulmonary embolism - Patient complaints of shortness of Breath and night sweats for 1 week and D- dimer is high - CT abdomen pelvis with contrast revealed small bilateral pleural effusion with right-sided complex ovarian mass - Ordered V/Q scan and echo - Ordered ultrasound of the pelvis - Ordered CA 125, CA 27-29 and alpha-fetoprotein to rule out ovarian malignancy - Consulted OBGYN - Started heparin drip per PE protocol # Transaminitis without hyperbilirubinemia likely secondary to possible ovarian malignancy - Monitor CMP # Acute complicated cystitis - UA consistent with UTI - Ordered urine bacterial culture - IV ceftriaxone 1 g daily. # Chronic normocytic anemia likely secondary to menorrhagia - Ordered iron panel and FOBT # PUD prophylaxis - Protonix 40 mg p.o. daily # DVT prophylaxis - Lovenox 40 mg sc daily 1. Menorrhagia with chronic anemia 2. Primary dysmenorrhea 3. Small 2cm intramural fibroid (not clinically significant) 4. Acute SOB, etiology to be determined r/o VTE Plan discussed with: Patient Date of Service: May 20, 2024 Billing Provider: ELIAZAR OJEDA DO Common Visit Codes: [id number] INP/OBS CARE(HIGH) ELIAZAR OJEDA DO May 20, 2024 12:18
[2024-05-20] MEDS: cefTRIAXone 1GM/50ML D5W 50 ML IV SCH (13:11)
--- NOTE | 2024-05-20 13:20 | DVHINCON2 ---
Date of service: May 20, 2024 Reason for Consultation Uterine Fibroid 2cm, Menorrhagia, Anemia History of Present Illness HPI 38y Go, currently menstruating, LMP 05/19/24. Patient admitted with acute right flank pain and SOB, being worked up for VTE/PE. Treated with heparin drip. Pain in right flank has been present x 3 weeks, previously treated for a UTI in urgent care, but has continued symptoms. Denies dysuria. Denies hematuria, fever, chills, or cough, no N/V or diarrhea + constipation + Night sweats Patient reports normal menstrual cycles every 28 d with moderate to heavy flow x 6-8d each month. She uses 3-4 pads per day. Menses are characterized by clots and dysmenorrhea x 1st 3 days of each cycle She has tried DMPA and OCP's in the past but it caused many side effects. She is currently not sexually active for many years, does not use hormones or contraception. CT scan showed a possible adnexal mass, that subsequently proved to be a "normal ovary" on Pelvic US. Pelvic US shows endometrium of 1cm and B/L normal ovaries, uterus normal not enlarged, with 2cm fundal fibroid present (not clinically significant) History of anemia, etiology unknown. Denies any prior blood transfusions. Denies melena or hematochezia. 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 Habits: Denies vaping, tobacco, or EtOH use. Occasional THC+ use. SOCIAL SERVICE MANAGER HX: Last PAP smear > 5 yr ago, Denies hx of cervical dysplasia, denies history of STI. Family HX: Mother " AUTOIMMUNE HEPATITIS and liver failure, DM2. Sister : at age 39 from mesothelioma Denies Family Hx of Uterine, Breast or cervical/colon CA Home Meds No Active Prescriptions or Reported Meds Past Medical History Cardiac: No pertinent Hx Pulmonary: No pertinent Hx Central Nervous System: No pertinent Hx GI: No pertinent Hx Hemotology/Oncology: No pertinent Hx Hepatobiliary: No pertinent Hx Psychiatric: No pertinent Hx Musculoskeletal: No pertinent Hx Rheumotologic: No pertinent Hx Infectious Disease: No peritnent Hx ENT: No pertinent Hx Renal/: No pertinent Hx Endocrine: No pertinent Hx Dermatology: No pertinent Hx Patient Family History: Cardiovascular disease gradmother Chronic obstructive pulmonary disease gradmother Diabetes mellitus gradmother FH: liver disease G8 MOTHER Smoker: No Hx (Negative) Alocohol: None Drugs: Marijuana Lives with: With family Domestic Violence: Neg Review of Systems Constitutional: Other (NIght Sweats) Ears, Nose, & Throat: No symptom reported Eyes: No symptom reported Pulmonary/Respiratory: Dyspnea, Pleuritic Chest Pain Cardiovascular: No symptom reported Gastrointestinal: Abdominal Pain, Constipation Genitourinary: No symptom reported Musculoskeletal: No symptom reported Skin: No symptom reported Psychiatric: No symptom reported Endocrine: No symptom reported Hemotologic/Lymphatic: No symptom reported H&P Exam Vital Signs Vital Signs Date Time Temp Pulse Resp B/P (MAP) Pulse Ox O2 Delivery O2 Flow Rate FiO2 05/20/24 08:19 98.0 85 16 93/54 (67) 99 98.0 05/19/24 21:40 Room Air* 0 21 General Appeara: Well developed, Well nourished, Normal Appearance, Other (No acute distress, pleasant female) Head Exam: Normal inspection Neck Exam: Normal inspection Eye Exam: bilateral eye PERRL Pulmonary/Respiratory: Normal inspection Cardiovascular/Chest: Normal inspection Abdominal Exam: Normal bowel sounds, Soft, No tenderness, No masses Rectal Exam: Deferred Pelvic Exam: Not done WHARF TENDER Exam: Normal hearing, Normal speech Neuro/Mental St: Alert, Oriented Appearance: Appropriate appearance, Appropriate insight Labs/Xrays PATIENT: MATHEW GRIFFINCCT: [id number] UNIT: [id number] : 1985 LOC: OVERFLOW ROOM / BED: [address] [place] [address] AGE / SEX: 38 / F ADM STATUS: ADM IN SERVICE 2323 ORDERING PHYSICIAN: KEVYN STRAUSS RESIDENT PROCEDURE(s): PELUS - PELVIC REASON: Adnexal mass ORDER NUMBER(s): [id number], ACCESSION NUMBER(s): [id number] INDICATION: pain TECHNIQUE: Multiple real-time grayscale transabdominal and TV sonographic images along with color and duplex Doppler of the uterus and ovaries were obtained. COMPARISON: None FINDINGS: The uterus measures 7 x 4 x 4 cm. The endometrial stripe measures 1 cm. Heterogeneous mass measuring 2 cm in the body of the uterus. This could represent a fibroid. The right ovary measures 2 x 2 x 3 cm. The left ovary measures 2 x 2 x 2 cm. Subsequent color and duplex Doppler interrogation of the ovaries demonstrated symmetric vascular flow to both ovaries, though this does not exclude the possibility of torsion due to the dual blood supply. IMPRESSION: Heterogeneous mass measuring 2 cm in the body of the uterus. This could represent a fibroid . ATED BY: STEVAN SANCHEZ MD DICTATED DATE/TIME: 05/20/24 0407 Labs Test 05/20/24 07:45 05/20/24 04:51 05/19/24 23:08 05/19/24 20:20 Range/Units Prothrombin Time 11.4 9.3-11.8 sec Prothrombin Time INR 1.08 0.9-1.15 Activated Partial Thromboplast Time 72.8 *H 24.5-34.5 SEC White Blood Count 6.0 4.4-10.8 10^3/uL Red Blood Count 3.03 L 4.0-5.20 10^6/uL Hemoglobin 7.6 L 12.2-16.2 g/dL Hematocrit 24.6 L 36.0-46.0 % Mean Corpuscular Volume 81.3 80.0-100.0 fL Mean Corpuscular Hemoglobin 25.1 L 28.0-32.0 pg Mean Corpuscular Hemoglobin Concent 30.9 L 32.0-36.0 g/dL Red Cell Distribution Width 17.1 H 11.8-14.3 % Platelet Count 601 H 140-450 10^3/uL Mean Platelet Volume 7.6 6.9-10.8 fL Neutrophils (%) (Auto) 70.0 37.0-80.0 % Lymphocytes (%) (Auto) 14.4 10.0-50.0 % Monocytes (%) (Auto) 13.9 H 0.0-12.0 % Eosinophils (%) (Auto) 1.0 0.0-7.0 % Basophils (%) (Auto) 0.7 0.0-2.0 % Neutrophils # (Auto) 4.2 1.6-8.6 10 ^3/uL Lymphocytes # (Auto) 0.9 0.4-5.4 10 ^3/uL Monocytes # (Auto) 0.8 0-1.3 10 ^3/uL Eosinophils # (Auto) 0.1 0-0.8 10 ^3/uL Basophils # (Auto) 0 0-0.2 10 ^3/uL Nucleated Red Blood Cells 0.0 % Sodium Level 135 L 136-145 mmol/L Potassium Level 3.2 L 3.5-5.1 mmol/L Chloride Level 108 H 98-107 mmol/L Carbon Dioxide Level 16 L 20-31 mmol/L Anion Gap 11 5-15 Blood Urea Nitrogen 9 9-23 mg/dL Creatinine 0.69 0.550-1.02 mg/dL Glomerular Filtration Rate Calc 114 >90 mL/min BUN/Creatinine Ratio 13.0 10.0-20.0 Serum Glucose 142 H 74-106 mg/dL Calcium Level 8.5 L 8.7-10.4 mg/dL Iron Level 17 L 50-170 ug/dL Total Iron Binding Capacity 526 H 250-425 ug/dL Percent Iron Saturation 3.2 L 15-50 % Total Bilirubin 0.5 0.2-1.0 mg/dL Aspartate Amino Transferase (AST) 181 H 13-40 U/L Alanine Aminotransferase (ALT) 274 H 7-40 U/L Alkaline Phosphatase 164 H 46-116 U/L Total Protein 7.5 5.7-8.2 g/dL Albumin 3.8 3.2-4.8 g/dL Blood Gas Specimen Type Arterial Blood Gas Sample Site Left radial Blood Gas Patient Temperature 37.0 Arterial Blood Date Drawn Arterial Blood pH 7.450 7.350-7.450 Arterial Blood Partial Pressure CO2 22.5 L 32.0-45.0 mmHg Arterial Blood Partial Pressure O2 93.9 83.0-108.0 mmHg Arterial Blood HCO3 15.3 L 21.0-28.0 mmol/L Arterial Blood Oxygen Saturation 97.3 94.0-98.0 % Arterial Blood Base Excess -7.3 L -2.0-3.0 mmol/L Arterial Blood Oxyhemoglobin 96.7 94.0-98.0 % Arterial Blood Carboxyhemoglobin 0.3 L 0.5-1.5 % Arterial Blood Methemoglobin 0.3 0.0-1.5 % Jelani Test Yes Blood Gas Total Hemoglobin 9.60 L 12.0-16.0 g/dL Blood Gas Liter Flow 0.00 Blood Gas Modality Room air FiO2 % 21.0 Specimen Drawn By [employer] olga velasquez Test 05/19/24 13:57 05/19/24 12:35 Range/Units Urine Color Yellow Yellow Urine Clarity Clear Clear Urine pH 7.0 5.0-9.0 Urine Specific [place] 1.021 1.001-1.035 Urine Protein 1+ H Negative Urine Ketones Negative Negative Urine Blood Negative Negative /uL Urine Nitrite Negative Negative Urine Bilirubin Negative Negative Urine Urobilinogen 6 Negative mg/dL Urine Leukocyte Esterase 1+ Negative /uL Urine RBC 2 0 - 4 /hpf Urine WBC 5 0 - 5 /hpf Urine Squamous Epithelial Cells Few <5 /hpf Urine Bacteria Few H None Seen /hpf Urine Mucus Few None Seen Urine Glucose Normal Normal mg/dL Urine Opiates Screen Neg NEGATIVE Urine Fentanyl Screen Neg NEGATIVE Urine Barbiturates Screen Neg NEGATIVE Urine Phencyclidine Screen Neg NEGATIVE Urine Amphetamines Screen Neg NEGATIVE Urine Benzodiazepines Screen Neg NEGATIVE Urine Cocaine Screen Neg NEGATIVE Urine Cannabinoids Screen Pos NEGATIVE D-Dimer, Quantitative 4.83 H 0.0-0.49 mg/L FEU Lactic Acid Level 1.2 0.4-2.0 mmol/L Troponin I High Sensitivity < 3 L </=34 ng/L Lipase 31 12-53 U/L Beta HCG, Quantitative 0.2 L 1.5-4.2 mIU/mL Assessment/Plan Admitting Diagnosis: 1. Menorrhagia with chronic anemia 2. Primary dysmenorrhea 3. Small 2cm intramural fibroid (not clinically significant) 4. Acute SOB, etiology to be determined r/o VTE Plan NO acute night court magistrate intervention indicated at this time If VTE work up proves to be negative, she maybe candidate for TXA treatment (Lysteda TID x 5d each menstrual cycle) or MIRENA IUD to decrease excessive menstruation. We also discussed UAE as a minimally invasive treatment or endometrial ablation , but needs to consider these options since she doesn't have any children. (she does not desire future fertility) Recommend outpatient SOCIAL SERVICE MANAGER follow up for complete pelvic exam, PAP and HPV testing. Transfuse if needed for Hb < 7 and/or symptomatic anemia SOCIAL SERVICE MANAGER will sign off Thank you for allowing me to participate in the care of this patient. Plan discussed with: Patient Date of Service: May 20, 2024 Billing Provider: BEATRIZ CARRION DO Common Visit Codes: CONSULT ONLY Consultation Codes: [id number] CONSULT <60MIN BEATRIZ CARRION DO May 20, 2024 13:20
[2024-05-20 14:06] LABS: INR 1.07 (0.9-1.15); Partial Thromboplastin Time 49.9 SEC (24.5-34.5); Prothrombin Time 11.3 sec (9.3-11.8)
[2024-05-20] MEDS: HYDROcodone-ACET 5/325MG TAB PO PRN (15:48)
[2024-05-20] MEDS: POTASSIUM CHL 20 Meq TABLET PO ONE (16:35)
[2024-05-20 17:39] VITALS: BP 109/58; PULSE 70; RESP 16; TEMP 98.4; O2SAT 100
[2024-05-20 18:16] VITALS: O2SAT 96
[2024-05-20 20:18] LABS: INR 1.08 (0.9-1.15); Prothrombin Time 11.4 sec (9.3-11.8)
[2024-05-20 20:36] LABS: Partial Thromboplastin Time 77.8 SEC (24.5-34.5)
[2024-05-20 21:00] VITALS: BP 100/58; PULSE 82; RESP 20; TEMP 97.9; O2SAT 99
[2024-05-21 01:00] VITALS: BP 101/62; PULSE 59; RESP 20; TEMP 98.6; O2SAT 98
[2024-05-21 03:52] LABS: INR 1.06 (0.9-1.15); Partial Thromboplastin Time 47.3 SEC (24.5-34.5); Prothrombin Time 11.2 sec (9.3-11.8)
[2024-05-21] MEDS: HEPARIN DRIP/D5W 100UNITS/ML 250 ML IV SCH (04:40)
[2024-05-21 05:08] LABS: CA 27.29 16.6 U/mL (0.0-38.6)
[2024-05-21 05:16] VITALS: BP 119/67; PULSE 104; RESP 21; TEMP 98.4; O2SAT 99
[2024-05-21 06:12] LABS: Basophils # (auto) 0 10 ^3/uL (0-0.2); Eosinophils # (auto) 0.1 10 ^3/uL (0-0.8); Monocytes # (auto) 0.7 10 ^3/uL (0-1.3)
[2024-05-21 06:15] LABS: Basophils % (auto) 0.6 % (0.0-2.0); Hematocrit 25.7 % (36.0-46.0); Lymphocytes # (auto) 0.9 10 ^3/uL (0.4-5.4); Lymphocytes % (auto) 14.3 % (10.0-50.0); Mean Corpuscular Hemoglobin 25.3 pg (28.0-32.0); Mean Corpuscular Hgb Conc. 31.2 g/dL (32.0-36.0); Mean Corpuscular Volume 80.9 fL (80.0-100.0); Neutrophils # (auto) 4.3 10 ^3/uL (1.6-8.6); Neutrophils % (auto) 72.1 % (37.0-80.0); Platelet Count (auto) 725 10^3/uL (140-450); Red Blood Cells 3.17 10^6/uL (4.0-5.20); Red Cell Distribution Width 17.2 % (11.8-14.3)
[2024-05-21 08:37] VITALS: BP 93/54; PULSE 82; RESP 18; TEMP 98.4; O2SAT 98
[2024-05-21 10:07] LABS: AFP Serum Tumor Marker <1.8 ng/mL (0.0-6.4)
[2024-05-21 10:07] LABS: Cancer Antigen (CA) 125 67.2 U/mL (0.0-38.1)
[2024-05-21 11:23] LABS: INR 1.08 (0.9-1.15); Prothrombin Time 11.4 sec (9.3-11.8)
[2024-05-21 11:31] LABS: Partial Thromboplastin Time 65.2 SEC (24.5-34.5)
[2024-05-21 13:31] VITALS: BP 98/52; PULSE 78; RESP 20; TEMP 98.3; O2SAT 97
[2024-05-21] MEDS: SODIUM CHLORIDE 0.9% 1,000 ML IV ONE (15:15)
--- NOTE | 2024-05-21 15:16 | DVHPN2 ---
Reviewed: Care Plan, H&P, Labs, Medications, Previous Orders, Radiology General: Per HPI Eyes: No Pain, No Vision change, No Conjunctivae inflammation, No Eyelid inflammation, No Other, No Redness ENT: No Ear pain, No Ear discharge, No Nose pain, No Nose discharge, No Nose congestion, No Mouth pain, No Mouth swelling, No Throat pain, No Throat swelling, No Other Cardiovascular: No Chest Pain, No Palpitations, No Orthopnea, No Paroxysmal Noc. Dyspnea, No Edema, No Lt Headedness, No Other Respiratory: No Cough, No Dry; Shortness of breath, SOB with excertion; No Wheezing, No Hemoptysis, No Pleuritic Pain, No Sputum, No Other Gastrointestinal: No Nausea, No Vomiting; Abdominal Pain; No Diarrhea, No Constipation, No Melena, No Hematochezia, No Other Genitourinary: No Dysuria, No Frequency, No Incontinence, No Hematuria, No Retention, No Other Musculoskeletal: No other, No neck pain, No shoulder pain, No arm pain, No back pain, No hand pain, No leg pain, No foot pain Skin: No Rash, No Lesions, No Jaundice, No Bruising, No Other Objective Vitals Vital Signs Date Time Temp Pulse Resp B/P (MAP) Pulse Ox O2 Delivery O2 Flow Rate FiO2 05/21/24 13:31 98.3 78 20 98/52 (67) 97 98.3 05/21/24 08:00 Room Air* 0 21 Intake/Output Intake and Output 05/21/24 06:59 Intake Total 910 ml Balance 910 ml Intake Oral 660 ml IV Total 250 ml # Voids 4 Medications Current Medications Medications Dose Ordered Sig/Tamar Route Start Time Stop Time Status Last Admin Dose Admin Sodium Chloride 10 ml Q8HR IV 05/19/24 22:00 05/21/24 14:00 10 ML Acetaminophen/ Hydrocodone Bitart 1 tab Q4HP PRN PO 05/19/24 21:30 05/21/24 10:40 1 TAB Ondansetron HCl 4 mg Q4HP PRN IV 05/19/24 21:30 Nitroglycerin 0.4 mg Q5MINP PRN SL 05/19/24 21:30 Morphine Sulfate 2 mg Q30M PRN IV 05/19/24 21:30 Ceftriaxone Sodium 50 ml @ 100 mls/hr DAILY IV 05/20/24 10:00 05/21/24 09:39 100 MLS/HR Pantoprazole Sodium 40 mg DAILY@0600 PO 05/20/24 06:00 05/21/24 05:31 40 MG Laboratory Results Laboratory Tests 05/20/24 04:51 05/21/24 05:43 Coagulation Test 05/20/24 19:07 05/21/24 03:15 05/21/24 10:02 Prothrombin Time 11.4 sec (9.3-11.8) 11.2 sec (9.3-11.8) 11.4 sec (9.3-11.8) Prothrombin Time INR 1.08 (0.9-1.15) 1.06 (0.9-1.15) 1.08 (0.9-1.15) Activated Partial Thromboplast Time 77.8 SEC (24.5-34.5) *H 47.3 SEC (24.5-34.5) H 65.2 SEC (24.5-34.5) H Urinalysis Test 05/19/24 13:57 Urine Color Yellow (Yellow) Urine Clarity Clear (Clear) Urine pH 7.0 (5.0-9.0) Urine Specific [place] 1.021 (1.001-1.035) Urine Protein 1+ (Negative) H Urine Ketones Negative (Negative) Urine Blood Negative /uL (Negative) Urine Nitrite Negative (Negative) Urine Bilirubin Negative (Negative) Urine Urobilinogen 6 mg/dL (Negative) Urine Leukocyte Esterase 1+ /uL (Negative) Urine RBC 2 /hpf (0 - 4) Urine WBC 5 /hpf (0 - 5) Urine Squamous Epithelial Cells Few /hpf (<5) Urine Bacteria Few /hpf (None Seen) H Urine Mucus Few (None Seen) Urine Glucose Normal mg/dL (Normal) Assessment/Plan Assessment/Plan This is a 38 years old female with no significant past medical history presented to the ED with a chief complaint of shortness of breath and and left upper abdominal and flank pain for 1 last 1 week prior to this admission. According to the patient shortness of breath and left upper abdominal pain started 1 week ago and then she went to urgent care and diagnosed with UTI and gave antibiotic and she just finished her antibiotic cephalexin this morning but it did not relief her shortness of breath or abdominal pain. The abdominal pain is colicky in nature, 6/10 constant, non radiating and associated with night sweats and aggravated by lying down on the left side without any relieving factor. The patient denies any sick contact, recent traveling , nausea, vomiting, change in bowel or bladder habit, dysuria ,urgency or any blood in urine . # Shortness of breath likely secondary to pulmonary embolism - Patient complaints of shortness of Breath and night sweats for 1 week and D- dimer is high - CT abdomen pelvis with contrast revealed small bilateral pleural effusion with right-sided complex ovarian mass - Ordered V/Q scan and echo - Ordered ultrasound of the pelvis - Ordered CA 125, CA 27-29 and alpha-fetoprotein to rule out ovarian malignancy - Consulted OBGYN - Started heparin drip per PE protocol # Transaminitis without hyperbilirubinemia likely secondary to possible ovarian malignancy - Monitor CMP # Acute complicated cystitis - UA consistent with UTI - Ordered urine bacterial culture - IV ceftriaxone 1 g daily. # Chronic normocytic anemia likely secondary to menorrhagia - Ordered iron panel and FOBT # PUD prophylaxis - Protonix 40 mg p.o. daily # DVT prophylaxis - Lovenox 40 mg sc daily 1. Menorrhagia with chronic anemia 2. Primary dysmenorrhea 3. Small 2cm intramural fibroid (not clinically significant) 4. Acute SOB, etiology to be determined r/o VTE My Orders Orders - ELIAZAR OJEDA DO Procedure Category Date Status Time Sodium Chloride 0.9% PHA 05/21/24 Logged 15:15 ELIAZAR OJEDA DO May 21, 2024 15:16
[2024-05-21] MEDS ORDERED: NAP500T PO (15:17)
[2024-05-21 16:09] VITALS: BP 89/50; PULSE 98; RESP 18; TEMP 98.4; O2SAT 98
== END 2024-05-21 18:00 | disposition home or self-care (01) | DRG 689 ==
LOC: ER 12:16 → OVERFLOW 21:30 → EAST 05-20 18:22
PROVIDERS: ATTEND Internal Medicine
DX: N30.00 Acute cystitis without hematuria (principal); I26.99 Other pulmonary embolism without acute cor pulmonale; I31.39 Other pericardial effusion (noninflammatory); D25.1 Intramural leiomyoma of uterus; D64.9 Anemia, unspecified; E11.9 Type 2 diabetes mellitus without complications; I51.7 Cardiomegaly; N92.0 Excessive and frequent menstruation with regular cycle; E80.6 Other disorders of bilirubin metabolism; N94.6 Dysmenorrhea, unspecified; R74.01 Elevation of levels of liver transaminase levels; Z88.6 Allergy status to analgesic agent; Z87.891 Personal history of nicotine dependence; Z87.440 Personal history of urinary (tract) infections
CPT/HCPCS: 36415; 36600; 74177; 76830; 76856; 78582; 80053; 80307; 81001; 82105; 82805; 83540; 83550; 83605; 83690; 84484; 84702; 85025; 85379; 85610; 85730; 86300; 86304; 93005; 93970; 99291; G0378